=== PATIENT | female | born 1985 | race Caucasian/White ===

== ENCOUNTER 2018-04-14 19:10 | Outpatient (CLI) | payer BC ==
[~2018-04-14] VITALS: Ht 157.5 cm; Wt 67.5 kg
[~2018-04-14 19:10] MED LIST: B-12250 MCG PO; FOLIC ACID PO; NOHOMEMEDS; PORTIA 28 DA1 TABLET PO
[2018-04-14 19:37] LABS: APPEARANCE SL.HAZY ((CLEAR)); BILIRUBIN NEGATIVE; BLOOD NEGATIVE; COLOR STRAW ((YELLOW)); GLUCOSE (STRIP) NEGATIVE; KETONES NEGATIVE; LEUKOCYTES NEGATIVE; NITRITE NEGATIVE; PROTEIN (STRIP) NEGATIVE; SPECIFIC GRAVITY 1.006 (1.000-1.030); UROBILINOGEN 0.2 MG/DL (0.2-1.0)
[2018-04-14 19:41] LABS: BACTERIA NONE SEEN /HPF; EPITHELIAL CELLS 2+ /HPF; MUCUS TRACE /LPF; RED BLOOD CELLS 0-5 /HPF (0-5); UCUL ADDED? NO; WHITE BLOOD CELLS 0-5 /HPF (0-5)
[2018-04-14 19:46] LABS: HEMATOCRIT 27.6 % (36.0-46.0); MCH 40.8 PG (29.0-34.0); MCHC 36.2 G/DL (30.0-36.0); MCV 112.7 FL (83-99); RBC DIS.WIDTH-CV 13.5 % (11.8-14.6); RBC DIS.WIDTH-SD 55.1 % (39-53); RED BLOOD COUNT 2.45 M/uL (3.80-5.20); WHITE BLOOD COUNT 6.5 K/uL (4.1-10.2)
[2018-04-14 19:47] LABS: ALBUMIN 3.9 g/dL (3.2-4.8)
[2018-04-14 19:48] LABS: CHLORIDE 105 mEq/L (99-109); POTASSIUM 3.9 mEq/L (3.7-5.4); SODIUM 138 mEq/L (136-147)
[2018-04-14 19:50] LABS: GLUCOSE 82 mg/dL (70-99)
[2018-04-14 19:52] LABS: TOTAL BILIRUBIN 0.4 mg/dL (0.0-1.0)
[2018-04-14 19:53] LABS: ALKALINE PHOSPHATASE 46 IU/L (3-129)
[2018-04-14 19:54] LABS: CREATININE 0.6 mg/dL (0.6-1.3); GFR ESTIMATE (CALCULATED) > 59 mL/min/
[2018-04-14 19:55] LABS: AST (GOT) 21 IU/L (2-34); UREA NITROGEN (BUN) 6 mg/dL (9-23)
[2018-04-14 19:56] LABS: ALT (GPT) 21 IU/L (3-49)
[2018-04-14 20:20] LABS: QUANTITATIVE HCG 19593.9 MIU/ML
[2018-04-14 20:24] LABS: HEMATOLOGY COMMENT 1 SN; IMM.PLATELET FRACTION 4.5 (1-7); PLAT.SUFFICIENCY DECREASED; PLATELET COUNT 50 K/uL (156-360)
[2018-04-14 22:11] LABS: LIPASE 9 U/L (1.0-51.0)
[2018-04-15 02:49] VITALS: BP 106/58
[2018-04-15 07:59] VITALS: BP 92/51
[2018-04-15 08:21] LABS: BASOPHIL (%) 0.2 % (0-1); EOSINOPHIL (%) 1.2 % (0-5); EOSINOPHIL COUNT 0.1 K/uL (0-0.3); HEMATOCRIT 24.6 % (36.0-46.0); HEMOGLOBIN 8.3 G/DL (11.9-15.5); IMMATURE GRANULOCYTE (%) 1.2 % (0.0-0.7); LYMPHOCYTE (%) 24.9 % (15-42); MCH 39.7 PG (29.0-34.0); MCHC 33.7 G/DL (30.0-36.0); MCV 117.7 FL (83-99); MONOCYTE (%) 9.4 % (3-12); MONOCYTE COUNT 0.4 K/uL (0-0.8); NEUTROPHIL (%) 63.1 % (45-76); NEUTROPHIL COUNT 2.6 K/uL (1.8-6.4); RBC DIS.WIDTH-CV 14.4 % (11.8-14.6); RBC DIS.WIDTH-SD 60.7 % (39-53); RED BLOOD COUNT 2.09 M/uL (3.80-5.20); WHITE BLOOD COUNT 4.1 K/uL (4.1-10.2)
[2018-04-15 08:41] LABS: ANISOCYTOSIS 1+; IMM.PLATELET FRACTION 3.3 (1-7); MACROCYTES 2+; PLAT.SUFFICIENCY VERY DECREASED; PLATELET COUNT 42 K/uL (156-360)
[2018-04-15 10:35] VITALS: BP 111/64
[2018-04-15 11:09] LABS: FIBRINOGEN 274 mg/dL (150-450)
[2018-04-15 11:11] LABS: PTT 23.9 SEC (25-37)
[2018-04-15 15:36] VITALS: BP 106/57
[2018-04-15 18:53] VITALS: BP 106/70
[2018-04-15 22:08] VITALS: BP 99/55
[2018-04-16 03:18] VITALS: BP 98/57
[2018-04-16 06:44] LABS: BASOPHIL (%) 0.3 % (0-1); EOSINOPHIL (%) 1.4 % (0-5); EOSINOPHIL COUNT 0.1 K/uL (0-0.3); HEMATOCRIT 23.1 % (36.0-46.0); HEMOGLOBIN 7.9 G/DL (11.9-15.5); IMMATURE GRANULOCYTE (%) 1.1 % (0.0-0.7); LYMPHOCYTE (%) 30.9 % (15-42); LYMPHOCYTE COUNT 1.1 K/uL (1.0-2.8); MCH 40.5 PG (29.0-34.0); MCHC 34.2 G/DL (30.0-36.0); MCV 118.5 FL (83-99); MONOCYTE (%) 9.3 % (3-12); MONOCYTE COUNT 0.3 K/uL (0-0.8); RBC DIS.WIDTH-CV 14.5 % (11.8-14.6); RBC DIS.WIDTH-SD 62.1 % (39-53); RED BLOOD COUNT 1.95 M/uL (3.80-5.20); WHITE BLOOD COUNT 3.6 K/uL (4.1-10.2)
[2018-04-16 07:24] LABS: IMM.PLATELET FRACTION 3.5 (1-7); PLAT.SUFFICIENCY DECREASED; PLATELET COUNT 40 K/uL (156-360)
== END 2018-04-16 12:57 | disposition home or self-care (01) ==
LOC: RME 19:10 → EME 19:10 → 2WEST 04-15 00:06
PROVIDERS: Obstetrics & Gynecology; Obstetrics & Gynecology Gynecology
DX: O99.89 Other specified diseases and conditions complicating pregnancy, childbirth and the puerperium (principal); N13.30 Unspecified hydronephrosis; Z3A.26 26 weeks gestation of pregnancy; Z87.891 Personal history of nicotine dependence
CPT/HCPCS: 59025; 72195; 76770; 76805; 80053; 81003; 83690; 84702; 85025; 85027; 85384; 85460; 85610; 85730; 87086; 99281; 99284; G0378; J0696; J3010; J7030; J7120